=== PATIENT | female | born 1945 | race Caucasian/White ===

== ENCOUNTER 2024-08-30 09:18 | Emergency (ER) | payer OTHER, SELFPAY ==
[2024-08-30 09:34] VITALS: BP 182/82; PULSE 86; RESP 18; TEMP 36.6; O2SAT 97; BMI 28.6
--- NOTE | 2024-08-30 09:34 | DI.RAD.S_ITS ---
PROCEDURE: XR ANKLE LT MIN 3V INDICATIONS: fall, pain, edema TECHNIQUE: 3 views of the ankle were acquired. COMPARISON: None. FINDINGS: Bones: Oblique fracture through the distal fibula with minimal displacement. There is a small ankle effusion. Calcaneal spurs and vascular calcifications. Soft tissues: Small tibiotalar joint effusion. Achilles tendon appears normal. Prominent soft tissue swelling of the lateral malleolus. IMPRESSION: Oblique fracture through the distal fibula. Dictated by: Cesar Guevara M.D. on 08/30/2024 at 8:59 Approved by: Cesar Guevara M.D. on 08/30/2024 at 9:01
--- NOTE | 2024-08-30 09:40 | DI.RAD.S_ITS ---
PROCEDURE: XR FOOT LT MIN 3V INDICATIONS: fall TECHNIQUE: 3 views of the foot were acquired. COMPARISON: [facility], CR, XR ANKLE LT MIN 3V, 08/30/2024, 9:31. FINDINGS: Bones: Oblique fracture of the distal fibula. Chronic appearing fractures of the 4th and 5th proximal phalanx. No suspicious bony lesions. Calcaneal spurs. Soft tissues: No tibiotalar joint effusion. Achilles tendon appears normal. IMPRESSION: Nondisplaced acute fracture of the distal fibula. Chronic appearing fractures of the 4th and 5th proximal phalanx. Dictated by: Cesar Guevara M.D. on 08/30/2024 at 8:56 Approved by: Cesar Guevara M.D. on 08/30/2024 at 8:59
--- NOTE | 2024-08-30 10:11 | ED.LOWEXIN ---
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 Patient has been painful with weight-bearing and swelling. Patient states she was walking down some stairs of the last 2 sort of lost her footing and injured her ankle. She states she was had some bruising but states that is normal as she was anticoagulated. Denies any other injuries. Denies hitting her head. No neck or back pain. No numbness tingling or weakness. She states it is quite uncomfortable to walk. She was had some Tylenol which has been a little bit helpful. She states she also takes medication for hypertension. Patient states allergy to erythromycin. Patient is currently traveling on a cruise. They live in [facility]. She notes she has had prior fractures in that foot before that were healed with an ortho shoe and no other interventions she was following regularly with Podiatry for this. The cruise we will continue through next Saturday and then returned to [facility]. She was accompanied by her spouse. Related Data Previous Rx's Medication Instructions Recorded hydrocodone 5 mg-acetaminophen 325 1 tab PO Q6H PRN pain #20 tabs 08/30/24 mg tablet hydroxyzine pamoate 25 mg capsule 25 mg PO TID PRN muscle spasm #14 08/30/24 caps Allergies Allergy/AdvReac Type Severity Reaction Status Date / Time erythromycin base Allergy Mild Rash Verified 08/30/24 09:39 Review of Systems Review of Systems ROS Unobtainable: All systems reviewed & are unremarkable except as noted in HPI and below Patient History Social History Smoking Status: Never smoker Smoking Status: Never smoker Alcohol type: wine Exam Narrative Exam Narrative: GEN: Patient appears in mild distress. HEAD: No evidence of trauma, no raccoon/Jj sign. NECK: Nontender, painless range of motion, trachea midline Negative Nexus criteria, no line tenderness, distracting injury, altered mental status, neuro deficit, recent EtOH. EYES: PERRLA, EOMI ENT: External inspection normal, trachea is midline, Nares are clear, no septal hematoma, no dental or oral injury, airway is normal and with normal occlusion, No bony tenderness RESP: Chest is nontender and has symmetric movement, no ecchymosis, breath sounds are normal no crackles, wheezes or rales CVS: Heart sounds are normal, no murmur noted, No JVD. ABG/GI: Nontender, soft, normal bowel sounds, no distention, no organomegaly NEURO: Oriented AOx3, neuro is grossly intact, sensation and motor is normal all 4 extremities moving, cranial nerves II through XII are intact, GCS is 15 PSYCH: Normal mood and affect SKIN: Intact, warm and dry, no crepitus and without decubitus BACK: No CVA tenderness, no vertebral tenderness, no step-off's, no crepitus EXT: Patient has a ecchymosis of the great toe and over the dorsum of the foot just adjacent. Patient has tenderness over the lateral malleoli. No tenderness of the heel. No tenderness over the tarsal bones, slight tenderness over the great toe but not exquisite. No other tenderness of the other toes. Patient is otherwise negative with squeeze at the proximal tib-fib. Knee thigh and hip are nontender. Patient was otherwise normal range of motion. No other bony tenderness with full range of motion of all other 3 extremities. Patient is neurovascularly intact in all 4 extremities. 2+ dorsalis pedis the left. Initial Vital Signs Initial Vital Signs: Vital Signs Temperature 97.9 F 08/30/24 09:34 Pulse Rate 86 08/30/24 09:34 Respiratory Rate 18 08/30/24 09:34 Blood Pressure 182/82 H 08/30/24 09:34 Pulse Oximetry 97 08/30/24 09:34 Oxygen Delivery Method Room Air 08/30/24 09:34 Course Orders Ordered: ED Orders 08/30/24 09:40 XR foot LT min 3V Stat Discontinued Medications Hydrocodone Bitart/Acetaminophen (Hydrocodone/Acet 5/325 Tablet) 1 tab PO NOW ONE Stop: 08/30/24 11:08 Last Admin: 08/30/24 11:17 Dose: 1 tab Documented By: LORENA Vital Signs Vital signs: Vital Signs - 8 hr 08/30/24 11:30 Pulse Rate 84 Respiratory Rate 18 Blood Pressure 207/86 H Pulse Oximetry 98 Oxygen Delivery Method Room Air MDM - Extremity Injury (Lower) MDM Narrative Medical decision making narrative: Foot x-ray shows nondisplaced acute fracture of the distal fibula, chronic appearing fractures of 4th and 5th proximal phalanx. Ankle x-ray shows oblique fracture through the distal fibula with minimal displacement there is a small ankle effusion, calcaneal spurs and vascular calcifications. Small tibiotalar joint effusion. Achilles tendon appears normal. Prominent soft tissue swelling of the lateral malleolus. Spoke with Dr. Barriga, orthopedic surgery at 11:05 a.m. agrees with plan for ortho boot, toe-touch weight-bearing as tolerated with crutches or walker. Patient is to follow-up. Reviewed patient's imaging and finding in their entirety. Discharge Plan Departure Patient Disposition: Home Clinical Impression: Closed left fibular fracture Instructions: DI for Ankle Fracture Activity Restrictions/Additional Instructions: Follow up with your manager union or if you prefer orthopedic surgery. Call Saturday to set up a follow up appointment once you have returned home. Contact for local orthopedic surgery is included but you have also been provided a disc of your images for when you return home to [place]. Take these to your appointment. Please call this week to set up follow up. Your imaging shows an oblique fracture through the distal fibula with minimal displacement, there is a small ankle effusion. On your foot x-ray has a chronic appearing fractures of the 4th and 5th proximal phalanx. You had x-rays of your ankle and foot. You can take acetaminophen up to a 1000 mg every 6 hours as needed for pain. If inadequate for pain you can take [place] 1-2 tablets every 6 hours instead. If you have has a lot of muscle spasm you can take Vistaril 1 tablet every 8 hours as needed. Both with the Vistaril and [place] or sedating medications. This medication can make you sleepy do not drive, perform hazardous activities or make any major decisions while taking it. This medication will make you constipated please take a stool softener such as Colace or Dulcolax once to twice daily until stools are soft and regular. Prescription sent to [facility] in [place]. Splint Care: Keep splint clean and dry. Elevated affected body part to decrease swelling. OK to use ice pack on the affected body part. Use for 15-20 minutes each time, for 5-6x per day. If you develop worsening pain, numbness, tingling, discoloration of the affected body part, adjust with the ortho boot, and either see your doctor for an urgent re-assessment, or return to the Emergency Department. Return to the Emergency Department for any new or worsening symptoms. Prescriptions: New hydrocodone-acetaminophen 5-325 mg tablet 1 tab PO Q6H PRN (Reason: pain) Qty: 20 0RF hydroxyzine pamoate 25 mg capsule 25 mg PO TID PRN (Reason: muscle spasm) Qty: 14 0RF Referrals: Portillo Barriga MD [Physician] - Stand Alone Forms: Patient Portal/API/Survey
[2024-08-30] MEDS: HYDROCODONE/ACET 5/325 TABLET 1 TAB PO (11:17)
[2024-08-30 11:30] VITALS: BP 207/86; PULSE 84; RESP 18; O2SAT 98
== END 2024-08-30 11:49 | disposition home or self-care (01) ==
PROVIDERS: Emergency Provider Emergency Medicine
DX: S82.832A Other fracture of upper and lower end of left fibula, initial encounter for closed fracture (principal); D68.51 Activated protein C resistance; W10.9XXA Fall (on) (from) unspecified stairs and steps, initial encounter; Y92.814 Boat as the place of occurrence of the external cause; Z79.01 Long term (current) use of anticoagulants
CPT/HCPCS: 29515; 73610; 73630; 99283